=== PATIENT | female | born 1995 | race Two or more races ===

== ENCOUNTER 2019-09-27 07:21 | Emergency (ER) | payer OTHER ==
[~2019-09-27] VITALS: Ht 170.2 cm; Wt 98.0 kg
[2019-09-27] MEDS ORDERED: PEPCID AC20 MG PO (12:06)
[2019-09-27] MEDS ORDERED: INTESTINEX680 M1 PO (12:06)
== END 2019-09-27 12:16 | disposition home or self-care (01) ==
LOC: ER 07:21
DX: K52.89 Other specified noninfective gastroenteritis and colitis (principal); Z03.818 Encounter for observation for suspected exposure to other biological agents ruled out; R11.11 Vomiting without nausea; R19.7 Diarrhea, unspecified; R51 Headache

== ENCOUNTER → 2020-03-18 | Emergency (ER) | payer OTHER ==
[~2020-03-18] VITALS: Ht 167.6 cm; Wt 86.2 kg
[~2020-03-18] MED LIST: INTESTINEX680 M1 PO; PEPCID AC20 MG PO
== END | disposition home or self-care (01) ==
LOC: ER 12:02
DX: S83.8X2A Sprain of other specified parts of left knee, initial encounter (principal); X50.0XXA Overexertion from strenuous movement or load, initial encounter; Y93.89 Activity, other specified; Y92.89 Other specified places as the place of occurrence of the external cause; Y99.8 Other external cause status

== ENCOUNTER 2023-03-02 16:58 | Emergency (ER) | payer OTHER ==
[~2023-03-02] VITALS: Ht 170.2 cm; Wt 88.5 kg
== END 2023-03-02 22:04 | disposition home or self-care (01) ==
LOC: ER 16:59
DX: H60.8X1 Other otitis externa, right ear (principal)

== ENCOUNTER 2023-03-03 09:21 | Emergency (ER) | payer OTHER ==
[~2023-03-03] VITALS: Ht 170.2 cm; Wt 88.5 kg
== END 2023-03-03 11:15 | disposition home or self-care (01) ==
LOC: ER 09:23
DX: H66.93 Otitis media, unspecified, bilateral (principal); T78.49XA Other allergy, initial encounter

== ENCOUNTER 2023-07-23 12:58 | Inpatient (IN) | payer OTHER ==
[~2023-07-23] VITALS: Ht 170.2 cm; Wt 99.8 kg
--- NOTE | 2023-07-23 13:19 | NUR ---
PTE REFEIRE MALETAR GENERAL DESDE EL CARLOS SE LE TONIE S/V Y SE UBICA.
[2023-07-23] MEDS ORDERED: CEPHALEXIN500 MG PO (13:44)
[2023-07-23] MEDS ORDERED: TYLENOL ARTHRI650 MG PO (13:44)
[2023-07-23] MEDS ORDERED: ACETAMINOPHEN 500 MG GEL..CAP PO STA (13:48)
--- NOTE | 2023-07-23 14:00 | NUR ---
SE ORIENTA A PACIENTE SOBRE TRATAMIENTO MEDICO LA CUAL INDICA ENTENDER Y ACEPTAR. SE DALLAS MUESTRAS DE LABORATORIO BAJO MEDIDAS ASEPTICAS. APCIENTE REHUSA TYLENOL.
[2023-07-23 14:03] LABS: HEMATOCRIT 27.7 % (36.0-45.00); HEMOGLOBIN 9.2 g/dL (12.0-15.00); MEAN CELL VOLUME 80.9 fL (80.00-100.00); MEAN CORPUSCULAR HEMOGLOBIN 26.9 pg (27.00-32.0); MEAN CORPUSCULAR HGB CONC 33.2 g/dl (32.0-36.0); PLATELET COUNT 413 K/uL (150-450); RED BLOOD COUNT 3.43 M/uL (4.00-6.00); RED CELL DISTRIBUTION WIDTH 15.9 % (11.5-14.5)
[2023-07-23 14:32] LABS: PH,URINE 5.5 (5.0-8.0); URINE APPEARANCE Cloudy; URINE BILIRRUBIN Small (NEGATIVE); URINE BLOOD Large; URINE COLOR Dark Yellow; URINE GLUCOSE Negative (NEGATIVE); URINE LEUKOCYTE Moderate; URINE NITRATE Negative
[2023-07-23 14:36] LABS: URINE EPITHELIAL CELLS 36.3 uL (0.0-38.8); URINE RBC 82.9 uL (0.0-20.8)
[2023-07-23 14:52] LABS: URINE BACTERIA > 9821.5 uL (0.0-1933); URINE PROTEIN 100 (NEGATIVE)
[2023-07-23] MEDS ORDERED: CEFTRIAXONE SODIUM 1,000 MG VIAL IV STA (15:09)
[2023-07-23] MEDS ORDERED: CEFTRIAXONE SODIUM 1,000 MG VIAL IM STA (15:13)
[2023-07-23] MEDS ORDERED: CEFTRIAXONE SODIUM 1,000 MG VIAL ONE (15:14)
[2023-07-23] MEDS ORDERED: NASAL MIST126 ML (15:22)
[2023-07-23] MEDS ORDERED: CEFTRIAXONE SODIUM 1,000 MG VIAL IV ONE (15:30)
[2023-07-23] MEDS ORDERED: FAMOTIDINE/PF 20 MG in 0.9 % SODIUM CHLORIDE 8 ML IV PUSH STA (16:19)
[2023-07-23] MEDS ORDERED: OxyCODONE HCL/APAP UD (PERCOCET) PO ONE (16:30)
[2023-07-23] MEDS ORDERED: 0.9 % SODIUM CHLORIDE 1,000 ML IV SCH ×2 (16:30→22:00)
[2023-07-23 16:36] LABS: BILIRUBIN TOTAL 0.41 mg/dL (0.3-1.2); CALCIUM 9.1 mg/dL (8.5-10.1); CREATININE SERUM 1.01 mg/dL (0.55-1.02); GFR 64.8; GLOBULINA 4.9 G/DL (2.4-3.5); POTASSIUM 3.79 mEq/L (3.5-5.1); TOTAL PROTEIN 7.9 gm/dL (6.4-8.2)
[2023-07-23] MEDS ORDERED: FAMOTIDINE/PF 20 MG/2 ML VIAL ONE (16:39)
[2023-07-23] MEDS ORDERED: 0.9 % SODIUM CHLORIDE 1,000 ML IV ONE (18:15)
[2023-07-23] MEDS ORDERED: CEFTRIAXONE SODIUM 2,000 MG in 0.9 % SODIUM CHLORIDE 100 ML IV SCH (21:53)
[2023-07-23] MEDS ORDERED: METRONIDAZOLE/SODIUM CHLORIDE 100 ML IV SCH (21:56)
[2023-07-23] MEDS ORDERED: MEPERIDINE HCL/PF 25 MG/ML VIAL IM ONE (22:00)
[2023-07-23] MEDS ORDERED: ONDANSETRON HCL 4 MG in 0.9 % SODIUM CHLORIDE 50 ML IV PRN (22:00)
[2023-07-23] MEDS ORDERED: ACETAMINOPHEN 500 MG GEL..CAP PO PRN (22:00)
[2023-07-23] MEDS ORDERED: MEPERIDINE HCL/PF 25 MG/ML VIAL IM PRN (22:00)
[2023-07-24 00:29] LABS: INR 1.1; PARTIAL THROMBOPLASTIN TIME 31.4 SECONDS (22.0-34.0); PROTHROMBIN TIME 11.5 SECONDS (9.0-11.5)
[2023-07-24] MEDS ORDERED: IRON FUM,PS/FOLIC/BCOMP,C NO.9 1 CAP CAPSULE PO SCH (09:00)
[2023-07-24] MEDS ORDERED: FAMOTIDINE/PF 20 MG in 0.9 % SODIUM CHLORIDE 8 ML IV PUSH SCH (09:00)
[2023-07-24] MEDS ORDERED: DOXYCYCLINE HYCLATE 100MG IV SCH (21:00)
[2023-07-25 08:59] LABS: HEMATOCRIT 24.3 % (36.0-45.00); MEAN CELL VOLUME 81.4 fL (80.00-100.00); MEAN CORPUSCULAR HGB CONC 33.1 g/dl (32.0-36.0); PLATELET COUNT 395 K/uL (150-450); RED BLOOD COUNT 2.99 M/uL (4.00-6.00)
[2023-07-25 09:02] LABS: HEMOGLOBIN 8.1 g/dL (12.0-15.00)
[2023-07-25 09:56] LABS: MAGNESIUM 2.1 mg/dL (1.8-2.4); PHOSPHOROUS 3.3 mg/dL (2.5-4.9)
[2023-07-25 09:57] LABS: C-REACTIVE PROTEIN 29.3 MG/DL (0.00-0.29)
[2023-07-25] MEDS ORDERED: FUROsemide 20 MG/2 ML VIAL IV SCH (12:45)
[2023-07-25 17:29] LABS: URINE APPEARANCE Cloudy; URINE BILIRRUBIN Small (NEGATIVE); URINE BLOOD Trace; URINE COLOR Dark Yellow; URINE GLUCOSE Negative (NEGATIVE); URINE LEUKOCYTE Small; URINE NITRATE Negative
[2023-07-25 17:34] LABS: URINE BACTERIA 66.7 uL (0.0-1933); URINE EPITHELIAL CELLS 17.7 uL (0.0-38.8); URINE RBC 32.6 uL (0.0-20.8); URINE WBC 142.2 uL (0.0-23.2)
[2023-07-25 17:52] LABS: URINE PROTEIN 100 (NEGATIVE)
[2023-07-26 14:47] LABS: HEMATOCRIT 28.2 % (36.0-45.00); HEMOGLOBIN 9.6 g/dL (12.0-15.00); MEAN CELL VOLUME 81.5 fL (80.00-100.00); MEAN CORPUSCULAR HEMOGLOBIN 27.6 pg (27.00-32.0); MEAN CORPUSCULAR HGB CONC 33.9 g/dl (32.0-36.0); PLATELET COUNT 424 K/uL (150-450); RED BLOOD COUNT 3.46 M/uL (4.00-6.00); RED CELL DISTRIBUTION WIDTH 16.1 % (11.5-14.5)
[2023-07-27 07:40] LABS: HEMATOCRIT 31.8 % (36.0-45.00); HEMOGLOBIN 10.9 g/dL (12.0-15.00); MEAN CELL VOLUME 81.1 fL (80.00-100.00); MEAN CORPUSCULAR HEMOGLOBIN 27.7 pg (27.00-32.0); MEAN CORPUSCULAR HGB CONC 34.2 g/dl (32.0-36.0); PLATELET COUNT 427 K/uL (150-450); RED BLOOD COUNT 3.92 M/uL (4.00-6.00); RED CELL DISTRIBUTION WIDTH 16.7 % (11.5-14.5)
[2023-07-27 07:49] LABS: ERYTHROCYTE SEDIMENTATION RATE > 130 mm/hr
[2023-07-27 08:20] LABS: ALBUMIN 2.6 gm/dL (3.4-5.0); BILIRUBIN TOTAL 0.37 mg/dL (0.3-1.2); CALCIUM 8.8 mg/dL (8.5-10.1); CREATININE SERUM 0.63 mg/dL (0.55-1.02); GFR 111.72; GLOBULINA 4.7 G/DL (2.4-3.5); POTASSIUM 3.81 mEq/L (3.5-5.1); TOTAL PROTEIN 7.3 gm/dL (6.4-8.2)
[2023-07-27 08:27] LABS: C-REACTIVE PROTEIN 23.4 MG/DL (0.00-0.29)
[2023-07-27] MEDS ORDERED: VANCOMYCIN HCL 1,250 MG in 0.9 % SODIUM CHLORIDE 250 ML IV SCH (17:00)
[2023-07-27] MEDS ORDERED: PIPERACILLIN/TAZOBACTAM SODIUM 3.375 GM in DEXTROSE 5 % IN WATER 100 ML IV SCH (18:00)
[2023-07-27] MEDS ORDERED: VANCOMYCIN HCL 5 MG/ML REDILUIDO IV SCH (21:00)
[2023-07-28] MEDS ORDERED: LORazepam 0.5 MG TABLET PO ONE (09:15)
[2023-07-28 13:09] LABS: HEMATOCRIT 31.4 % (36.0-45.00); HEMOGLOBIN 10.3 g/dL (12.0-15.00); MEAN CORPUSCULAR HGB CONC 32.9 g/dl (32.0-36.0); PLATELET COUNT 554 K/uL (150-450); RED BLOOD COUNT 3.83 M/uL (4.00-6.00); RED CELL DISTRIBUTION WIDTH 16.6 % (11.5-14.5)
[2023-07-28 13:40] LABS: ALBUMIN 2.5 gm/dL (3.4-5.0); BILIRUBIN TOTAL 0.29 mg/dL (0.3-1.2); CALCIUM 8.7 mg/dL (8.5-10.1); CREATININE SERUM 0.88 mg/dL (0.55-1.02); GFR 75.97; GLOBULINA 4.6 G/DL (2.4-3.5); MAGNESIUM 2.3 mg/dL (1.8-2.4); PHOSPHOROUS 3.7 mg/dL (2.5-4.9); POTASSIUM 3.89 mEq/L (3.5-5.1); TOTAL PROTEIN 7.1 gm/dL (6.4-8.2)
[2023-07-28 14:04] LABS: C-REACTIVE PROTEIN 12.6 MG/DL (0.00-0.29)
[2023-07-28] MEDS ORDERED: DIATRIZOATE MEGLUMINE, SODIUM 30 ML BOTTLE PO NR (16:15)
[2023-07-28] MEDS ORDERED: FAMOtidine 20 MG TABLET PO SCH (21:00)
[2023-07-28 21:05] LABS: chla t Negative (Negative); neiss Negative (Negative)
[2023-07-29 07:57] LABS: PH,URINE 6.5 (5.0-8.0); URINE APPEARANCE Clear; URINE BILIRRUBIN Negative (NEGATIVE); URINE BLOOD Negative; URINE COLOR Yellow; URINE GLUCOSE Negative (NEGATIVE); URINE LEUKOCYTE Negative; URINE NITRATE Negative; URINE PROTEIN Negative (NEGATIVE); URINE UROBILINOGEN 0.2 E.U./dl
[2023-07-29 08:01] LABS: URINE BACTERIA 7.5 uL (0.0-1933); URINE EPITHELIAL CELLS 2.1 uL (0.0-38.8); URINE RBC 4.7 uL (0.0-20.8); URINE WBC 3.8 uL (0.0-23.2)
[2023-07-29 10:03] LABS: PLATELET ESTIMATE NORMAL (NORMAL)
[2023-07-29] MEDS ORDERED: ALEVE220 M1 PO (16:41)
[2023-07-30] MEDS ORDERED: SOD FERRIC GLUC COMPLX/SUCROSE 62.5 MG/5 ML AMPUL IV SCH (09:00)
[2023-07-30] MEDS ORDERED: VITAMIN B COMPLEX 1 EACH PO SCH (09:00)
[2023-07-30] MEDS ORDERED: Cyanocobalamin/Mecobalamin 1 TAB.SL SL SCH ×2 (09:00→17:00)
[2023-07-30 09:20] LABS: HEMATOCRIT 29.9 % (36.0-45.00); HEMOGLOBIN 9.9 g/dL (12.0-15.00); MEAN CELL VOLUME 81.6 fL (80.00-100.00); MEAN CORPUSCULAR HEMOGLOBIN 27.1 pg (27.00-32.0); MEAN CORPUSCULAR HGB CONC 33.2 g/dl (32.0-36.0); PLATELET COUNT 553 K/uL (150-450); RED BLOOD COUNT 3.67 M/uL (4.00-6.00)
[2023-07-30 10:00] LABS: FERRITIN 134.4 NG/ML (8-252)
[2023-07-30 10:23] LABS: CALCIUM 8.2 mg/dL (8.5-10.1); CREATININE SERUM 1.04 mg/dL (0.55-1.02); GFR 62.65; POTASSIUM 3.8 mEq/L (3.5-5.1)
[2023-07-30 11:03] LABS: FOLIC ACID 16.56 ng/ml (4.78-20)
[2023-08-01 08:20] LABS: HEMATOCRIT 29.6 % (36.0-45.00); HEMOGLOBIN 10.1 g/dL (12.0-15.00); MEAN CELL VOLUME 81.6 fL (80.00-100.00); MEAN CORPUSCULAR HEMOGLOBIN 27.8 pg (27.00-32.0); MEAN CORPUSCULAR HGB CONC 34.1 g/dl (32.0-36.0); PLATELET COUNT 565 K/uL (150-450); RED BLOOD COUNT 3.62 M/uL (4.00-6.00); RED CELL DISTRIBUTION WIDTH 17.1 % (11.5-14.5)
[2023-08-01 09:38] LABS: ALBUMIN 2.6 gm/dL (3.4-5.0); BILIRUBIN TOTAL 0.33 mg/dL (0.3-1.2); CALCIUM 8.5 mg/dL (8.5-10.1); CREATININE SERUM 1.16 mg/dL (0.55-1.02); GFR 55.23; GLOBULINA 4.6 G/DL (2.4-3.5); POTASSIUM 4.04 mEq/L (3.5-5.1); TOTAL PROTEIN 7.2 gm/dL (6.4-8.2)
[2023-08-01] MEDS ORDERED: CEFTRIAXONE SODIUM 2,000 MG VIAL IV SCH (17:00)
[2023-08-01] MEDS ORDERED: ACETAMINOPHEN 500 MG GEL..CAP PO PRN (20:45)
[2023-08-02] MEDS ORDERED: FLUCONAZOLE 100 MG TABLET PO SCH (16:12)
[2023-08-04] MEDS ORDERED: DIATRIZOATE MEGLUMINE, SODIUM 30 ML BOTTLE PO ONE (06:00)
[2023-08-04] MEDS ORDERED: fentaNYL CITRATE 50 MCG/ML AMPUL IV PUSH ONE (17:00)
[2023-08-04] MEDS ORDERED: MIDAZOLAM HCL 2 MG/2 ML VIAL IV PUSH ONE (17:00)
[2023-08-05] MEDS ORDERED: PENICILLIN G BENZATHINE LA 1.2 MMU/2 ML DISP.SYRIN IM ONE (11:30)
== END 2023-08-05 16:43 | disposition home or self-care (01) | DRG 872 ==
LOC: ER 12:59 → MEDJ 22:07 → MEDI 22:07 → SEC-K 22:25 → MEDJ 22:26 → MEDI 07-30 19:55 → MEDJ 07-30 20:11
PROVIDERS: Emergency Medicine; General Practice; Internal Medicine; Internal Medicine Hematology & Oncology; Internal Medicine Infectious Disease; Specialist; ADMIT Internal Medicine; ATTEND Internal Medicine
PROC: BW21ZZZ Computerized Tomography (CT Scan) of Abdomen and Pelvis (ICD-10-PCS; principal; 2023-07-23)
PROC: BU4CZZZ Ultrasonography of Uterus and Ovaries (ICD-10-PCS; 2023-07-24)
PROC: 30233N1 Transfusion of Nonautologous Red Blood Cells into Peripheral Vein, Percutaneous Approach (ICD-10-PCS; 2023-07-25)
PROC: BW21YZZ Computerized Tomography (CT Scan) of Abdomen and Pelvis using Other Contrast (ICD-10-PCS; 2023-07-28)
DX: A41.9 Sepsis, unspecified organism (principal); N39.0 Urinary tract infection, site not specified; N12 Tubulo-interstitial nephritis, not specified as acute or chronic; A53.0 Latent syphilis, unspecified as early or late; D50.0 Iron deficiency anemia secondary to blood loss (chronic); N93.9 Abnormal uterine and vaginal bleeding, unspecified